=== PATIENT | male | born 1970 | race Caucasian/White ===

== ENCOUNTER 2019-02-12 06:08 | Emergency (ER) | payer SELFPAY ==
[~2019-02-12] VITALS: Ht 170.2 cm; Wt 122.2 kg
[2019-02-12 06:11] VITALS: PULSE 103; RESP 20; Ht 170.2 cm; Wt 122.2 kg
[2019-02-12 06:44] VITALS: BP 171/79
== END 2019-02-12 07:04 | disposition left against medical advice (07) ==
LOC: E/R 06:08
DX: Z53.21 Procedure and treatment not carried out due to patient leaving prior to being seen by health care provider (principal)